=== PATIENT | male | born 1945 | race Caucasian/White ===

== ENCOUNTER 2017-12-15 17:27 | Observation (INO) | payer MEDICARE, OTHER ==
[2017-12-15 19:34] LABS: ADD MAN DIFF? NO
[2017-12-15 19:36] LABS: WHITE BLOOD COUNT 7.8 10^3/ul (4.8-10.8)
[2017-12-15 19:36] LABS: BASOPHILS % 0.3 % (0.0-2.0); EOSINOPHILS # 0.1 10^3/ul (0.0-0.5); HEMATOCRIT 34.1 % (42.0-52.0); HEMOGLOBIN 11.7 g/dl (14.0-18.0); LYMPHOCYTES # 2.9 10^3/ul (0.8-2.9); LYMPHOCYTES % 36.8 % (15.0-51.0); MEAN CORPUSCULAR HEMOGLOBIN 32.4 pg (29.0-33.0); MEAN CORPUSCULAR HGB CONC 34.3 g/dl (32.0-37.0); MEAN CORPUSCULAR VOLUME 94.5 fl (82.0-101.0); MEAN PLATELET VOLUME 10.6 fl (7.4-10.4); MONOCYTE # 0.6 10^3/ul (0.3-0.9); NEUTROPHIL # 4.2 10^3/ul (1.6-7.5); NEUTROPHILS % 53.6 % (39.0-77.0); PLATELET COUNT 251 10^3/UL (140-415); RED BLOOD COUNT 3.61 10^6/ul (4.70-6.10); RED CELL DISTRIBUTION WIDTH 12.9 % (11.5-14.5)
[2017-12-15] MEDS ORDERED: ONDANSETRON 4 MG INJ IV ×2 (20:00→20:30)
[2017-12-15] MEDS ORDERED: ACETAMINOPHEN 325 MG TAB PO ×2 (20:00→20:30)
[2017-12-15 20:03] LABS: ALANINE AMINOTRANSFERASE 25 IU/L (13-69); ALBUMIN 3.7 g/dl (3.3-4.9); ALBUMIN/GLOBULIN RATIO 0.94; ALKALINE PHOSPHATASE 80 IU/L (42-121); ANION GAP 10 (8-16); ASPARTATE AMINO TRANSFERASE 26 IU/L (15-46); BILIRUBIN,INDIRECT 0.4 mg/dl (0-1.1); BILIRUBIN,TOTAL 0.4 mg/dl (0.2-1.3); BLOOD UREA NITROGEN 12 mg/dl (7-20); CALCIUM 9.2 mg/dl (8.4-10.2); CARBON DIOXIDE 31 mmol/L (21-31); CHLORIDE 109 mmol/L (97-110); CREATININE 0.77 mg/dl (0.61-1.24); GLUCOSE 92 mg/dl (70-220); POTASSIUM 3.9 mmol/L (3.5-5.1); SODIUM 146 mmol/L (135-144); TOTAL PROTEIN 7.6 g/dl (6.1-8.1)
[2017-12-15] MEDS: ASPIRIN 325 MG TAB PO (20:05)
[2017-12-15] MEDS: NITROGLYCERIN 2% 1 GM OINT PKT TD (20:07)
[2017-12-15 20:13] LABS: B-TYPE NATRIURETIC PEPTIDE 39 PG/ML (0-125)
[2017-12-15 20:14] LABS: TROPONIN-I < 0.012 ng/ml (0.000-0.120)
[2017-12-15 20:28] LABS: PARTIAL THROMBOPLASTIN TIME 37.3 Sec (25.0-35.0); PROTIME 14.4 Sec (11.9-14.9); PT RATIO 1.1
[2017-12-15] MEDS ORDERED: NACL 0.9% 3 ML SYG IV (20:30)
[2017-12-15] MEDS: ASPIRIN 81 MG TAB PO (22:00)
[2017-12-15] MEDS: HYDROCODONE/APAP (5/325) TAB PO (22:56)
[2017-12-16] MEDS: morphine 2 MG INJ IV ×4 (03:16→17:13)
[2017-12-16 06:07] LABS: ADD MAN DIFF? NO
[2017-12-16 06:09] LABS: BASOPHILS % 0.2 % (0.0-2.0); EOSINOPHILS # 0.1 10^3/ul (0.0-0.5); EOSINOPHILS % 1.3 % (0.0-7.0); HEMATOCRIT 33.1 % (42.0-52.0); HEMOGLOBIN 11.6 g/dl (14.0-18.0); LYMPHOCYTES # 3.3 10^3/ul (0.8-2.9); LYMPHOCYTES % 40.8 % (15.0-51.0); MEAN CORPUSCULAR HEMOGLOBIN 32.5 pg (29.0-33.0); MEAN CORPUSCULAR VOLUME 92.7 fl (82.0-101.0); MEAN PLATELET VOLUME 10.2 fl (7.4-10.4); MONOCYTE # 0.6 10^3/ul (0.3-0.9); MONOCYTES % 7.2 % (0.0-11.0); NEUTROPHIL # 4.1 10^3/ul (1.6-7.5); NEUTROPHILS % 50.3 % (39.0-77.0); PLATELET COUNT 244 10^3/UL (140-415); RED BLOOD COUNT 3.57 10^6/ul (4.70-6.10); RED CELL DISTRIBUTION WIDTH 12.6 % (11.5-14.5)
[2017-12-16 06:09] LABS: WHITE BLOOD COUNT 8.2 10^3/ul (4.8-10.8)
[2017-12-16 06:42] LABS: IRON 56 ug/dl (35-150)
[2017-12-16 06:47] LABS: ALANINE AMINOTRANSFERASE 27 IU/L (13-69); ALBUMIN 3.6 g/dl (3.3-4.9); ALKALINE PHOSPHATASE 79 IU/L (42-121); ANION GAP 11 (8-16); ASPARTATE AMINO TRANSFERASE 26 IU/L (15-46); BILIRUBIN,INDIRECT 0.3 mg/dl (0-1.1); BILIRUBIN,TOTAL 0.3 mg/dl (0.2-1.3); BLOOD UREA NITROGEN 13 mg/dl (7-20); CALCIUM 8.9 mg/dl (8.4-10.2); CARBON DIOXIDE 28 mmol/L (21-31); CHLORIDE 109 mmol/L (97-110); CREATININE 0.78 mg/dl (0.61-1.24); GLUCOSE 98 mg/dl (70-220); MAGNESIUM 2.1 mg/dl (1.7-2.5); PHOSPHORUS 3.8 mg/dl (2.5-4.9); POTASSIUM 3.9 mmol/L (3.5-5.1); SODIUM 144 mmol/L (135-144); TOTAL PROTEIN 7.6 g/dl (6.1-8.1)
[2017-12-16 06:51] LABS: % IRON SATURATION 23 % SAT (22-52); TOTAL IRON BINDING CAPACITY 243 ug/dl (241-421)
[2017-12-16 06:54] LABS: HEMOGLOBIN A1C 4.8 % (0-5.9)
[2017-12-16] MEDS: ASPIRIN 81 MG TAB PO (08:19)
[2017-12-16] MEDS: FUROSEMIDE 40 MG TAB PO (08:20)
[2017-12-16] MEDS: HYDROCODONE/APAP (10/325) TAB PO ×3 (10:52→21:57)
[2017-12-16 11:35] LABS: TROPONIN-I < 0.012 ng/ml (0.000-0.120)
[2017-12-16] MEDS: GABAPENTIN 300 MG CAP PO ×2 (12:15→20:42)
[2017-12-16] MEDS: LISINOPRIL 10 MG TAB PO (12:15)
[2017-12-16 17:38] LABS: ADD UMIC NO; UR ASCORBIC ACID NEGATIVE (NEGATIVE); UR BILIRUBIN (Dip) NEGATIVE (NEGATIVE); UR BLOOD (Dip) NEGATIVE (NEGATIVE); UR CLARITY CLEAR (CLEAR); UR COLOR YELLOW (YELLOW); UR GLUCOSE (Dip) NEGATIVE (NEGATIVE); UR KETONES (Dip) NEGATIVE (NEGATIVE); UR LEUKOCYTE ESTERASE (Dip) NEGATIVE Leu/ul (NEGATIVE); UR NITRITE (Dip) NEGATIVE (NEGATIVE); UR TOTAL PROTEIN (Dip) NEGATIVE (NEGATIVE); UR UROBILINOGEN (Dip) NEGATIVE (NEGATIVE)
[2017-12-16] MEDS: morphine LIQ (10 MG/5 ML) CUP PO ×2 (20:43→23:23)
[2017-12-17] MEDS: morphine LIQ (10 MG/5 ML) CUP PO ×4 (01:53→23:05)
[2017-12-17] MEDS: HYDROCODONE/APAP (10/325) TAB PO ×5 (06:15→21:57)
[2017-12-17] MEDS: GABAPENTIN 300 MG CAP PO ×5 (08:42→20:44)
[2017-12-17] MEDS: FUROSEMIDE 40 MG TAB PO (08:45)
[2017-12-17] MEDS: ASPIRIN 81 MG TAB PO (08:46)
[2017-12-17] MEDS: LISINOPRIL 10 MG TAB PO (08:46)
[2017-12-17] MEDS: POLYETHYLENE GLYCOL 17 GM PACKET GTB (10:46)
[2017-12-17] MEDS: DOCUSATE SODIUM 100 MG CAP PO ×2 (10:46→20:45)
[2017-12-17] MEDS ORDERED: ZOLPIDEM 5 MG TAB PO (23:00)
[2017-12-18] MEDS: HYDROCODONE/APAP (10/325) TAB PO ×3 (04:03→12:29)
[2017-12-18] MEDS: ASPIRIN 81 MG TAB PO (08:17)
[2017-12-18] MEDS: FUROSEMIDE 40 MG TAB PO (08:17)
[2017-12-18] MEDS: GABAPENTIN 300 MG CAP PO ×2 (08:18→12:29)
[2017-12-18] MEDS: DOCUSATE SODIUM 100 MG CAP PO ×3 (08:18→21:08)
[2017-12-18] MEDS: LISINOPRIL 10 MG TAB PO (08:19)
[2017-12-18] MEDS: POLYETHYLENE GLYCOL 17 GM PACKET GTB (08:20)
[2017-12-18] MEDS ORDERED: BISACODYL 10 MG SUPP PR (15:00)
[2017-12-18] MEDS: MAGNESIUM CITRATE 300 ML BTL PO (16:15)
[2017-12-18] MEDS: oxyCODONE 5 MG TAB PO ×2 (16:23→21:08)
[2017-12-18] MEDS: GABAPENTIN 400 MG CAP PO (20:35)
[2017-12-19] MEDS: oxyCODONE 5 MG TAB PO (01:04)
[2017-12-19] MEDS ORDERED: GABAPENTIN 300 MG CAP PO ×2 (09:00→14:00)
== END 2017-12-19 05:53 | disposition left against medical advice (07) ==
LOC: E/R 17:27 → TEL 19:58
DX: R07.9 Chest pain, unspecified (principal); I10 Essential (primary) hypertension; G47.33 Obstructive sleep apnea (adult) (pediatric); N40.0 Benign prostatic hyperplasia without lower urinary tract symptoms; M54.30 Sciatica, unspecified side; R60.0 Localized edema; R53.81 Other malaise; K59.00 Constipation, unspecified; E66.01 Morbid (severe) obesity due to excess calories; Z68.41 Body mass index [BMI] 40.0-44.9, adult; E55.9 Vitamin D deficiency, unspecified; D64.9 Anemia, unspecified; Z87.891 Personal history of nicotine dependence
CPT/HCPCS: 36415; 71045; 80053; 81003; 82607; 82728; 83036; 83540; 83735; 83880; 84100; 84443; 84484; 85025; 85610; 85730; 87086; 93005; 93306; 93922; 93970; 97162; 99285-25; G0378